=== PATIENT | female | born 1990 | race Caucasian/White ===

== ENCOUNTER 2016-12-26 04:42 | Emergency (ER) | payer OTHER ==
[~2016-12-26] VITALS: Ht 165.1 cm; Wt 122.0 kg
[2016-12-26] MEDS ORDERED: TRAMADOL HCL50 MG PO (05:52)
[2016-12-26 06:25] VITALS: BP 141/92
== END 2016-12-26 06:26 | disposition home or self-care (01) ==
LOC: EME 04:42
DX: S29.011A Strain of muscle and tendon of front wall of thorax, initial encounter (principal); M94.0 Chondrocostal junction syndrome [Tietze]; I10 Essential (primary) hypertension; M32.9 Systemic lupus erythematosus, unspecified; F17.200 Nicotine dependence, unspecified, uncomplicated
CPT/HCPCS: 71101; 99281; 99284; J1885